=== PATIENT | female | born 1965 | race Caucasian/White ===

== ENCOUNTER → 2017-04-12 | Outpatient (CLI) | payer MEDICARE, MEDICAID ==
[~2017-04-12] MED LIST: AUGMENTIN 875 M1 TAB PO; CLARITIN10 MG PO
== END | disposition home or self-care (01) ==
LOC: US 12:59
DX: N93.8 Other specified abnormal uterine and vaginal bleeding (principal); R93.8 Abnormal findings on diagnostic imaging of other specified body structures; Z90.721 Acquired absence of ovaries, unilateral

== ENCOUNTER → 2017-05-06 | Day surgery (SDC) | payer MEDICARE, MEDICAID ==
[2017-05-01 08:29] VITALS: BP 119/55
[~2017-05-06] VITALS: Ht 165.1 cm; Wt 118.8 kg
[~2017-05-06] MED LIST changes: +SERTRALINE HYDR25 MG PO; +ZESTORETIC 10-1 EACH PO
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
--- NOTE | ~2017-05-06 | O ---
[place], [place] OPERATIVE NOTE NAME: MEGHA HAMILTON UNIT #: [id number] ROOM: DOCTOR: HARSH NATION MD BIRTHDATE: [birth year] DOS: 05/06/2017 PREOPERATIVE DIAGNOSES: Postmenopausal bleeding, thickened endometrial lining equal 1.3 cm per ultrasound and unable to evaluate in the office. POSTOPERATIVE DIAGNOSES: Postmenopausal bleeding, thickened endometrial lining equal 1.3 cm per ultrasound and unable to evaluate in the office with essentially normal intrauterine findings. OPERATION: D and C and hysteroscopy. SURGEON: Dr. Nation and Dr. Saravia. ANESTHESIA: MAC. ESTIMATED BLOOD LOSS: Minimal. REPLACEMENTS: IV fluids and Toradol. COMPLICATIONS: There were no complications. The patient's condition to recovery stable. OPERATIVE SUMMARY: The patient was taken to operating room in supine position. MAC anesthesia, lithotomy position, prepped and draped in routine manner. Bladder was catheterized of about 35-40 mL of clear urine. The patient has never had children and she had had a bilateral salpingo-oophorectomy at age 21 with no hormone replacement, which is about 30 years now with no hormone replacement and we knew that the vagina, the introitus and the cervix would be atrophic and in fact the cervix was quite infantile. We finally were able to visualize the cervix and grasped it and with multiple dilators we were able to dilate the cervix without creating a false channel and noted that the uterus was slightly retroverted, retroflexed and it was in fact about 7.5-8 cm in depths per sounding. We initially were not able to insert the hysteroscope and therefore we did a D and C with the smallest curette we had and stone forceps revealed very, very little tissue, mainly blood. After having done this; however, we were then able to insert our hysteroscope and we were able to visualize the fundus, the cornual region, the body of uterus and it was atrophic, it was somewhat scarred interestingly. There was no evidence to suggest any polyps, fibroids or any significant atypical tissue. We once again did another curettage and stone forceps utilization and again revealed very, very little tissue. Once we were completed with this, we checked for bleeding and noted none. We also checked for trauma, particularly in the periurethral area, the fourchette area and the 4 and 7 o'clock areas and noted minimal abrasions, but all good hemostasis and no necessity for any sutures. Once this was all completed, we cleaned the patient off, took her out of lithotomy position, awakened her and transferred her to recovery in stable condition. [place], [place] OPERATIVE NOTE NAME: MEGHA HAMILTON UNIT #: [id number] ROOM: DOCTOR: HARSH NATION MD BIRTHDATE: [birth year] HARSH NATION MD CM:OPRECORD:OPERATIVE NOTE 0824 NATHALY NATION MD 05/06/17 0933 interface
[2017-05-06 06:45] VITALS: BP 174/94
[2017-05-06 08:09] VITALS: BP 156/94
[2017-05-06 08:25] VITALS: BP 160/91
[2017-05-06 08:41] VITALS: BP 155/92
== END | disposition home or self-care (01) ==
LOC: SDC 05-01 08:00
DX: N85.00 Endometrial hyperplasia, unspecified (principal); I10 Essential (primary) hypertension; Z80.9 Family history of malignant neoplasm, unspecified; Z98.890 Other specified postprocedural states; Z90.722 Acquired absence of ovaries, bilateral; E66.01 Morbid (severe) obesity due to excess calories; Z68.41 Body mass index [BMI] 40.0-44.9, adult

== ENCOUNTER → 2017-11-25 | Outpatient (CLI) | payer MEDICARE, MEDICAID ==
[2017-11-26 19:05] LABS: LEUKOCYTE ALK PHOSPHATASE 162 (25-130)
== END | disposition home or self-care (01) ==
LOC: LAB 11:11
PROVIDERS: Internal Medicine Hematology & Oncology
DX: D72.829 Elevated white blood cell count, unspecified (principal)

== ENCOUNTER → 2018-04-01 | Outpatient (CLI) | payer MEDICARE, MEDICAID ==
[2018-04-01 09:14] LABS: BASO # 0.1 10*3/uL (0.0-0.1); BASO % 0.6 % (0.0-1.0); EOS # 0.2 10*3/uL (0.0-0.4); EOS % 1.5 % (1.0-4.0); HEMATOCRIT 41.1 % (37.0-47.0); HEMOGLOBIN 12.7 g/dl (12.0-16.0); LYMPH # 4.2 10*3/uL (1.3-4.4); LYMPH % 29.3 % (27.0-41.0); MEAN CELL VOLUME 94.7 fl (81.0-99.0); MEAN CORPUSCULAR HGB 29.3 pg (27.0-31.0); MEAN CORPUSCULAR HGB CONC 30.9 g/dl (33.0-37.0); MONO # 1.2 10*3/uL (0.1-1.0); MONO % 8.5 % (3.0-9.0); NEUT # 8.5 10*3/uL (2.3-7.9); NEUT % 59.7 % (47.0-73.0); PLATELET COUNT AUTOMATED 314 10*3/uL (130-400); RED BLOOD COUNT 4.34 10*6/uL (4.10-5.10); RED CELL DISTRI WIDTH 14.1 % (0-14.5); WHITE BLOOD COUNT 14.3 10*3/uL (4.8-10.8)
== END | disposition home or self-care (01) ==
LOC: LAB 08:18
PROVIDERS: Internal Medicine Hematology & Oncology
DX: D72.829 Elevated white blood cell count, unspecified (principal)

== ENCOUNTER → 2018-05-24 | Outpatient (CLI) | payer MEDICARE, MEDICAID ==
[2018-05-24 07:44] LABS: BASO # 0.1 10*3/uL (0.0-0.1); BASO % 0.5 % (0.0-1.0); EOS # 0.3 10*3/uL (0.0-0.4); EOS % 1.8 % (1.0-4.0); HEMATOCRIT 38.9 % (37.0-47.0); LYMPH # 3.6 10*3/uL (1.3-4.4); LYMPH % 25.2 % (27.0-41.0); MEAN CELL VOLUME 96.3 fl (81.0-99.0); MEAN CORPUSCULAR HGB 29.7 pg (27.0-31.0); MEAN CORPUSCULAR HGB CONC 30.8 g/dl (33.0-37.0); MEAN PLATELET VOLUME 10.8 fl (9.6-12.3); MONO % 7.3 % (3.0-9.0); NEUT # 9.2 10*3/uL (2.3-7.9); NEUT % 64.6 % (47.0-73.0); PLATELET COUNT AUTOMATED 302 10*3/uL (130-400); RED BLOOD COUNT 4.04 10*6/uL (4.10-5.10); RED CELL DISTRI WIDTH 14.4 % (0-14.5); WHITE BLOOD COUNT 14.2 10*3/uL (4.8-10.8)
[2018-05-24 07:56] LABS: ALBUMIN 3.3 gm/dl (3.1-4.5); BUN 21 mg/dl (7-24); CHLORIDE 103 mmol/L (98-107); CREATININE 1.02 mg/dL (0.55-1.02); SODIUM 142 mmol/L (136-145)
[2018-05-24 08:01] LABS: PHOSPHOROUS 4.7 mg/dL (2.5-4.9)
== END | disposition home or self-care (01) ==
LOC: LAB 07:08
PROVIDERS: Internal Medicine
DX: C94.6 Myelodysplastic disease, not elsewhere classified (principal); I10 Essential (primary) hypertension; E53.9 Vitamin B deficiency, unspecified; F32.9 Major depressive disorder, single episode, unspecified

== ENCOUNTER 2018-09-08 09:07 | Inpatient (IN) | payer MEDICARE, MEDICAID ==
[~2018-09-08] VITALS: Ht 170.1 cm; Wt 122.9 kg
--- NOTE | ~2018-09-08 | EKG ---
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
--- NOTE | ~2018-09-08 | EKG ---
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
--- NOTE | ~2018-09-08 | EKG ---
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
[2018-09-08 09:10] VITALS: BP 115/94
[2018-09-08 09:47] LABS: BASO % 0.4 % (0.0-1.0); EOS % 0.3 % (1.0-4.0); HEMOGLOBIN 13.7 g/dl (12.0-16.0); LYMPH # 2.3 10*3/uL (1.3-4.4); LYMPH % 23.7 % (27.0-41.0); MEAN CELL VOLUME 91.1 fl (81.0-99.0); MEAN CORPUSCULAR HGB 29.7 pg (27.0-31.0); MEAN CORPUSCULAR HGB CONC 32.6 g/dl (33.0-37.0); MEAN PLATELET VOLUME 10.5 fl (9.6-12.3); MONO # 1.2 10*3/uL (0.1-1.0); MONO % 12.7 % (3.0-9.0); NEUT # 5.9 10*3/uL (2.3-7.9); NEUT % 62.4 % (47.0-73.0); PLATELET COUNT AUTOMATED 288 10*3/uL (130-400); RED BLOOD COUNT 4.61 10*6/uL (4.10-5.10); RED CELL DISTRI WIDTH 14.1 % (0-14.5); WHITE BLOOD COUNT 9.5 10*3/uL (4.8-10.8)
[2018-09-08 10:03] LABS: ALKALINE PHOSPHATASE 81 U/L (45-117); BUN 19 mg/dl (7-24); CHLORIDE 101 mmol/L (98-107); CREATININE 1.12 mg/dL (0.55-1.02); LIPASE 117 U/L (73-393); POTASSIUM 3.3 mmol/L (3.5-5.1); SGOT/AST 21 IU/L (3-35); SGPT/ALT 22 U/L (12-78); SODIUM 136 mmol/L (136-145); TOTAL PROTEIN 7.8 gm/dL (6.4-8.2)
[2018-09-08 10:09] LABS: TROPONIN I < 0.015 ng/ml (<0.045)
[2018-09-08 10:29] VITALS: BP 153/73
[2018-09-08 11:50] VITALS: BP 113/56
[2018-09-08 11:54] LABS: BILIRUBIN NEGATIVE (NEGATIVE); BLOOD 1+ (NEGATIVE); CLARITY SL CLOUDY (CLEAR); COLOR YELLOW (YELLOW); GLUCOSE NEGATIVE (NEGATIVE); KETONE NEGATIVE (NEGATIVE); LEUKO ESTERASE TRACE (NEGATIVE); NITRITE NEGATIVE (NEGATIVE); SPECIFIC GRAVITY <= 1.005 (1.005-1.030); UROBILINOGEN 0.2 E.U./dl (0.2-1.0)
[2018-09-08 12:06] LABS: BACTERIA 2+
[2018-09-08 12:30] VITALS: BP 133/89
--- NOTE | 2018-09-08 12:30 | NUR ---
A 52, admitted to , under the services of CHALO Ruleas DO with a diagnosis of ACUTE KIDNEY INJUURY, ACUTE ELECTROCARDIOGRAM CHANGE, ACUTE HYPOKALEMIA. Chief complaint is VOMITING. Patient arrived via ambulatory from ER. Monitor applied. Initial assessment completed. Vital signs taken and recorded. CHALO RUELAS DO notified of admission to the unit. Orders received. See assessment for past medical history, medications and allergies. Patient and/or family oriented to unit. [facility] visitation policy reviewed. Clothing/patient valuable form completed. JAY MORALES
--- NOTE | 2018-09-08 12:45 | NUR ---
PATIENT'S MOTHER STATES SHE WILL BRING THE PATIENT'S MEDICATIONS IN FROM HOME. PHARMACY STATES THAT ORDERED SCRIPTS AT THE PHARMACY WERE NOT EVER PICKED UP. CANNOT COMPLETE MED REC AT THIS TIME.
--- NOTE | 2018-09-08 12:45 | NUR ---
PATIENT AND FAMILY DENY ANY WOUNDS BESIDES SCABS THAT DO NOT LOOK TO NEED TREATED. PATIENT REFUSES ANY MEASUREMENTS, PICTURES, OR TREATMENT OF SCABS.
[2018-09-08 16:00] VITALS: BP 133/75
[2018-09-08 20:00] VITALS: BP 106/77
--- NOTE | 2018-09-08 20:00 | NUR ---
PT AWAKE AND RESTING IN BED. BEDSIDE REPORT RECIEVED. PT STATES THAT SHE IS NOT HAVING ANY PAIN AND VOICED NO FURTHER COMPLAINTS AT THIS TIME. CALL LIGHT WITHIN REACH.
[2018-09-09] VITALS: BP 138/58
[2018-09-09 06:28] LABS: HEMATOCRIT 38.1 % (37.0-47.0); MEAN CELL VOLUME 92.5 fl (81.0-99.0); MEAN CORPUSCULAR HGB 29.1 pg (27.0-31.0); MEAN CORPUSCULAR HGB CONC 31.5 g/dl (33.0-37.0); MEAN PLATELET VOLUME 10.5 fl (9.6-12.3); PLATELET COUNT AUTOMATED 237 10*3/uL (130-400); RED BLOOD COUNT 4.12 10*6/uL (4.10-5.10); RED CELL DISTRI WIDTH 14.3 % (0-14.5); WHITE BLOOD COUNT 9.6 10*3/uL (4.8-10.8)
[2018-09-09 06:59] LABS: ACT PARTIAL THROMBO TIME 22.4 SECONDS (20.8-31.5)
[2018-09-09 07:00] LABS: ALBUMIN 2.8 gm/dl (3.1-4.5); BUN 12 mg/dl (7-24); CHLORIDE 107 mmol/L (98-107); CHOLESTEROL 125 mg/dL (<200); CREATININE 0.97 mg/dL (0.55-1.02); POTASSIUM 3.6 mmol/L (3.5-5.1); SGOT/AST 20 IU/L (3-35); SGPT/ALT 20 U/L (12-78); SODIUM 142 mmol/L (136-145)
[2018-09-09 07:06] LABS: TOTAL CELLS COUNTED 100 #CELLS
[2018-09-09 07:07] LABS: ALKALINE PHOSPHATASE 64 U/L (45-117); FREE T4 1.25 ng/dl (0.76-1.46); HDL CHOLESTEROL 35 mg/dl (40-60); LDL CHOLESTEROL 64 mg/dL (9-159); PHOSPHOROUS 3.1 mg/dL (2.5-4.9); PLATELET SUFFICIENCY NORMAL (NORMAL); TOTAL PROTEIN 6.5 gm/dL (6.4-8.2); TRIGLYCERIDES 128 mg/dl (<150); VLDL CHOLESTEROL 26 mg/dL (6-40)
--- NOTE | 2018-09-09 07:53 | NUR ---
ASSUMED CARE OF PATIENT. RECEIVED REPORT FROM RADHA GOLDEN. PATIENT RESTING COMFORTABLY IN HER BED AT THIS TIME. NO S/S OF DISTRESS. RESP EASY. CALL LIGHT WITHIN REACH.
[2018-09-09 09:45] LABS: VITAMIN D, 25-HYDROXY 31.5 ng/mL (30-100)
[2018-09-09 12:00] VITALS: BP 108/46
[2018-09-09] MEDS ORDERED: CIPRO500 MG PO (15:57)
--- NOTE | 2018-09-09 16:40 | NUR ---
Discharge instructions reviewed with patient/family. Patient receptive and verbalizes understanding. Follow-up care arranged. Written instructions given to patient/family. PATIENT TAKEN FROM FLOOR VIA WHEELCHAIR. NO S/S OF DISTRESS. JAY MORALES
== END 2018-09-09 16:40 | disposition home or self-care (01) | DRG 689 ==
LOC: ED 09:07 → EDHOLD 10:21 → 4E 11:49
PROVIDERS: Family Medicine; Nurse Practitioner Family; ADMIT Internal Medicine
DX: N39.0 Urinary tract infection, site not specified (principal); N17.0 Acute kidney failure with tubular necrosis; E44.0 Moderate protein-calorie malnutrition; Z68.41 Body mass index [BMI] 40.0-44.9, adult; I49.9 Cardiac arrhythmia, unspecified; E87.6 Hypokalemia; R73.9 Hyperglycemia, unspecified; I49.3 Ventricular premature depolarization; E66.01 Morbid (severe) obesity due to excess calories; I10 Essential (primary) hypertension; F41.1 Generalized anxiety disorder; Z90.722 Acquired absence of ovaries, bilateral; Z80.9 Family history of malignant neoplasm, unspecified; Z79.899 Other long term (current) drug therapy; Z82.49 Family history of ischemic heart disease and other diseases of the circulatory system